=== PATIENT | male | born 1975 | race Two or more races ===

== ENCOUNTER 2018-08-19 07:35 | Outpatient (CLI) | payer OTHER ==
[~2018-08-19 07:35] MED LIST: IBUPROFEN800 MG PO; JANUMET 50-1,1 UDTAB; JANUMET 50-1,1 UDTAB PO; LOSARTAN POTAS100 MG; LOSARTAN POTAS100 MG PO; SEPTRA DS TABLE1 TAB PO; TOPROL XL50 M1; TOPROL XL50 M1 PO; TOPROL XL50 MG PO
== END 2018-08-19 07:36 | disposition home or self-care (01) ==
LOC: SONOGRAMA 07:35
DX: N61.1 Abscess of the breast and nipple (principal); N60.11 Diffuse cystic mastopathy of right breast; N60.12 Diffuse cystic mastopathy of left breast

== ENCOUNTER 2018-08-21 10:43 | Outpatient (CLI) | payer OTHER | END 2018-08-24 10:53 | disposition home or self-care (01) | LOC: SONOGRAMA 10:43 | DX: N61.1 Abscess of the breast and nipple (principal); N61.0 Mastitis without abscess ==

== ENCOUNTER 2018-08-21 17:04 | Outpatient (CLI) | payer OTHER | END 2018-08-21 17:38 | disposition home or self-care (01) | LOC: LAB 17:04 | DX: N61.1 Abscess of the breast and nipple (principal) ==

== ENCOUNTER → 2018-10-07 06:00 | Outpatient (CLI) | payer OTHER ==
[~2018-10-07 06:00] MED LIST changes: +JANUMET XR 50-1 EAC1 PO
== END | disposition home or self-care (01) ==
LOC: LAB 06:00 → CIR.AMB 10-09 09:30 → EDSTATUS 10-09 09:30 → CIR.AMB 10-09 18:15
DX: N61.0 Mastitis without abscess (principal); N60.22 Fibroadenosis of left breast; Z01.810 Encounter for preprocedural cardiovascular examination; Z01.812 Encounter for preprocedural laboratory examination